=== PATIENT | female | born 1955 | race Hispanic/Latino ===

== ENCOUNTER 2020-09-28 06:35 | Day surgery (SDC) | payer MEDICARE ==
[~2020-09-28] VITALS: Ht 157.5 cm; Wt 64.4 kg
[~2020-09-28 06:35] MED LIST: AMARYL1 M1 PO; ANASPAZ0.125 MG PO; BUDESONIDE3 MG PO; CETIRIZINE10 MG PO; FARXIGA5 MG PO; GABAPENTIN300 MG PO; HYDROCHLOROT12.5 MG PO; JANUMET1 TA1 PO; LISINOPRIL20 MG PO; METFORMIN500 M2 PO; PRAVASTATIN20 MG PO; PROTONIX40 M2 PO; VITAMIN B12500 MC1 PO; ZANTAC300 MG PO
[2020-09-28 09:22] LABS: INTERNATIONAL NORMALIZED RATIO 1.2 RATIO (0.7-1.3); PROTHROMBIN TIME 11.8 SECONDS (9.0-12.5)
[2020-09-28 09:42] VITALS: BP 146/82
== END 2020-09-28 09:52 | disposition home or self-care (01) ==
LOC: ENDO 06:35
PROVIDERS: ATTEND Internal Medicine Gastroenterology
PROC: 06L38CZ Occlusion of Esophageal Vein with Extraluminal Device, Via Natural or Artificial Opening Endoscopic (ICD-10-PCS; principal; 2020-09-28)
PROC: 0DBL8ZX Excision of Transverse Colon, Via Natural or Artificial Opening Endoscopic, Diagnostic (ICD-10-PCS; 2020-09-28)
DX: K74.60 Unspecified cirrhosis of liver (principal); I85.10 Secondary esophageal varices without bleeding; K29.70 Gastritis, unspecified, without bleeding; K31.9 Disease of stomach and duodenum, unspecified; K44.9 Diaphragmatic hernia without obstruction or gangrene; K57.30 Diverticulosis of large intestine without perforation or abscess without bleeding; K63.5 Polyp of colon; K55.20 Angiodysplasia of colon without hemorrhage; K64.4 Residual hemorrhoidal skin tags; K64.8 Other hemorrhoids; I86.8 Varicose veins of other specified sites; D64.9 Anemia, unspecified; I10 Essential (primary) hypertension; E11.9 Type 2 diabetes mellitus without complications; Z79.84 Long term (current) use of oral hypoglycemic drugs; Z87.11 Personal history of peptic ulcer disease; Z20.828 Contact with and (suspected) exposure to other viral communicable diseases